=== PATIENT | male | born 1945 | race Caucasian/White ===

== ENCOUNTER 2017-10-11 06:02 | Day surgery (SDC) | payer MEDICARE, OTHER ==
[2017-10-09 10:36] LABS: BASOPHILS % (AUTO) 0.8 % (0.0-5.0); EOSINOPHILS % (AUTO) 2.6 % (0.0-8.0); HEMATOCRIT 37.8 % (42-54); LYMPHOCYTES % (AUTO) 21.2 % (21.0-51.0); MEAN CORPUSCULAR HEMOGLOBIN 33.2 pg (27.0-33.0); MEAN CORPUSCULAR HGB CONC 35.4 g/dL (32.0-36.0); MEAN CORPUSCULAR VOLUME 93.8 fL (79-99); MONOCYTES % (AUTO) 7.8 % (3.0-13.0); NEUTROPHILS % (AUTO) 67.6 % (40.0-77.0); PLATELET COUNT (AUTO) 270 K/uL (130-400); RED BLOOD CELL COUNT(AUTO) 4.03 MIL/uL (4.50-6.20); RED CELL DISTRIBUTION WIDTH 13.3 % (11.0-15.5); WHITE BLOOD COUNT (AUTO) 10.1 K/uL (4.8-10.8)
[2017-10-09 10:42] LABS: CREATININE 1.2 mg/dL (0.5-1.5); POTASSIUM 3.5 mmol/L (3.5-5.1)
[2017-10-09 10:53] VITALS: BP 144/70
[~2017-10-11] VITALS: Ht 182.9 cm; Wt 113.4 kg
[2017-10-11] VITALS (15 sets, daily range): BP systolic 61–126; BP diastolic 30–64
[~2017-10-11 06:02] MED LIST: ASPI-555 PO; ATOR40TA71 PO; CARV6.25 PO; CETI10TA57 PO; GABA-531 PO; HYDR25TA PO; LOPE2TAB26 PO; MAGN400T40 PO; MECL-111 PO; OMEP40CA37 PO; POTA10TA14 PO; TAMS0.4C32 PO; VALS320T15 PO
[2017-10-11] MEDS ORDERED: CLINDAMYCIN 900 MG/D5% WATER 50 ML IV ONE (07:23)
[2017-10-11] MEDS ORDERED: LACTATED RINGERS 1000ML 1,000 ML IV ONE (07:23)
[2017-10-11] MEDS ORDERED: BUPIVACAINE/PF 0.25% 30ML VIAL IJ ONE (07:45)
[2017-10-11] MEDS ORDERED: NEOMY SULF/POLYMYXIN B SULFATE 1 ML AMPUL IR ONE (07:45)
[2017-10-11] MEDS ORDERED: DEXAMETHASONE SOD PHOSPHATE 10MG/ML 1ML VIAL ONE (07:48)
[2017-10-11] MEDS ORDERED: ONDANSETRON HCL 4 MG/2 ML VIAL ONE (07:48)
[2017-10-11] MEDS ORDERED: LIDOCAINE PF 2% 5ML ABBOJECT ONE (07:48)
[2017-10-11] MEDS ORDERED: GLYCOPYRROLATE 0.2 MG/ML 5 ML VIAL ONE (07:48)
[2017-10-11] MEDS ORDERED: MIDAZOLAM HCL 1 MG/ML 2ML VIAL ONE (07:49)
[2017-10-11] MEDS ORDERED: PROPOFOL 10 MG/ML 20ML VIAL IV ONE (07:49)
[2017-10-11] MEDS ORDERED: FENTANYL CITRATE PF 50 MCG/1 ML 2ML VIAL ONE (07:49)
[2017-10-11] MEDS ORDERED: BUPIVACAINE/PF 0.5% 30ML VIAL ONE (10:16)
[2017-10-11] MEDS ORDERED: MEPERIDINE-PF 50 MG/ML SYG ONE (11:04)
== END 2017-10-11 12:30 | disposition home or self-care (01) ==
LOC: DAH 06:02
PROVIDERS: ATTEND Surgery
DX: K43.2 Incisional hernia without obstruction or gangrene (principal); I25.10 Atherosclerotic heart disease of native coronary artery without angina pectoris; E78.5 Hyperlipidemia, unspecified; Z82.49 Family history of ischemic heart disease and other diseases of the circulatory system; Z80.9 Family history of malignant neoplasm, unspecified; Z79.899 Other long term (current) drug therapy; Z95.5 Presence of coronary angioplasty implant and graft; Z90.49 Acquired absence of other specified parts of digestive tract; I11.9 Hypertensive heart disease without heart failure; Z98.890 Other specified postprocedural states; Z87.891 Personal history of nicotine dependence
CPT/HCPCS: 36415; 49560; 80048; 85025; 93005; A4450; A4452; A4510; A4600; J1100; J2001; J2175; J2250; J2405; J2704; J3010; J3490 ×4; J7030; J7120